=== PATIENT | female | born 1950 | race Caucasian/White ===

== ENCOUNTER 2017-08-20 09:52 | Outpatient (RCR) | payer MEDICARE, MEDICAID ==
[~2017-08-20 09:52] MED LIST: CEPH500C PO
== END 2017-11-18 | disposition home or self-care (01) ==
LOC: ONC 09:52
PROVIDERS: ATTEND Internal Medicine Hematology & Oncology
DX: Z08 Encounter for follow-up examination after completed treatment for malignant neoplasm (principal); Z85.3 Personal history of malignant neoplasm of breast; Z79.899 Other long term (current) drug therapy
CPT/HCPCS: 99214

== ENCOUNTER 2018-09-16 10:38 | Outpatient (RCR) | payer MEDICARE, MEDICAID | END 2018-12-15 | disposition home or self-care (01) | LOC: ONC 10:38 | PROVIDERS: ATTEND Internal Medicine Hematology & Oncology | DX: Z08 Encounter for follow-up examination after completed treatment for malignant neoplasm (principal); Z85.3 Personal history of malignant neoplasm of breast; K58.9 Irritable bowel syndrome, unspecified; E66.01 Morbid (severe) obesity due to excess calories; Z68.41 Body mass index [BMI] 40.0-44.9, adult; Z79.899 Other long term (current) drug therapy | CPT/HCPCS: 99213 ==

== ENCOUNTER → 2021-08-13 | Outpatient (CLI) | payer MEDICARE, MEDICAID ==
--- NOTE | 2021-08-13 13:34 | Diagnostic Imaging Report ---
Procedure: CT sinuses without contrast Technique: Multiple contiguous axial images were obtained through the sinuses without the use of intravenous contrast. Coronal and sagittal reformations were then performed. Auto Exposure Controls were utilized during the CT exam to meet ALARA standards for radiation dose reduction. Date: August 13, 2021. Indication: 71-year-old female, sinus congestion. Tooth pain extending to the region of the temporomandibular joints and down the neck. Comparison: None. Findings: The bilateral frontal sinuses, ethmoidal air cells, and sphenoid sinuses are well aerated. There is a polypoid lesion in the right maxillary sinus most likely reflecting a mucous retention cyst. There is no air-fluid level in the paranasal sinuses. There is no area of bubbly internal lucency. The bilateral sphenoethmoidal recesses are patent. The bilateral ostiomeatal units are patent. The bony nasal septum is near midline. The mastoid air cells and middle ears are well aerated bilaterally. The temporomandibular joints are normally aligned. There is no prominent temporomandibular arthritis. There is no identified periapical lucency or bone destruction in the region of the maxillary teeth. The mandibular teeth are incompletely imaged. The mandible is not entirely included in the [id number] on dedicated paranasal sinus CT evaluation. The orbits are grossly unremarkable in appearance. Impression: 1. No evidence of acute or chronic sinusitis. 2. Unremarkable appearance of the temporomandibular joints. 3. No aggressive bone lesion of the maxilla. 4. The mandible and mandibular teeth are incompletely imaged. Dictated by: Dictated on workstation # [id number]
== END ==
LOC: RAD FS 12:42
PROVIDERS: ATTEND Nurse Practitioner Family
DX: J34.89 Other specified disorders of nose and nasal sinuses (principal)
CPT/HCPCS: 70486

== ENCOUNTER 2021-10-08 11:35 | Emergency (ER) | payer MEDICARE, MEDICAID ==
[~2021-10-08] VITALS: Ht 170.2 cm; Wt 117.9 kg
--- NOTE | 2021-10-08 12:36 | ED Cough/URI ---
General Chief Complaint: COVID19 Suspect/Confirmed Stated Complaint: COUGH Nursing Triage Note: Patient reports she has had a stuffy nose, cough, and fever for 10-11 days. Source: patient Exam Limitations: no limitations History of Present Illness Date Seen by Provider: Oct 08, 2021 Time Seen by Provider: 11:40 Initial Comments Patient is a 71-year-old female presents with 10 days of cough stuffy nose, nasal congestion, clear rhinorrhea, sinus pain/tenderness and intermittent daily fevers up to 102. Patient last had a fever last evening. Patient was evaluated by her PCP proximately 4 days ago and was prescribed albuterol inhaler which she has filled. She was instructed to obtain outpatient Covid tested but did not know how to do so. She denies worsening of her symptoms but states she has not improved. She reports decreased appetite and fluid intake. No urinary frequency urgency or burning. Patient does have very of chronic urinary i ncontinence. No other symptoms or complaints., Timing/Duration: changing over time Severity/Quality: dry cough Prior Episodes/Possible Cause: other Modifying Factors: Improves With Activity Associated Symptoms: cough, facial pain, fever/chills, nasal congestion, nasal drainage, sinus infection, sore throat Allergies and Home Medications Allergies Coded Allergies: metronidazole (Unverified Allergy, Unknown, 02/12/15) Patient Home Medication List Home Medication List Reviewed: Yes Cephalexin Monohydrate (Cephalexin) 500 Mg Capsule, 1 EACH PO TID Prescribed by: YE LANGSTON on 02/12/15 2457 Review of Systems Review of Systems Constitutional: see HPI EENTM: see HPI Respiratory: see HPI Cardiovascular: see HPI Gastrointestinal: see HPI Genitourinary: see HPI Musculoskeletal: see HPI Skin: see HPI Psychiatric/Neurological: See HPI Hematologic/Lymphatic: See HPI Immunological/Allergic: see HPI All Other Systems Reviewed Negative Unless Noted: Yes Past Qxviwdj-[id number]-Qoxaop Hx Patient Social History Tobacco Use?: Yes Past Medical History Joint Replacement Irritable Bowel Arthritis Physical Exam Vital Signs - First Documented 10/08/21 11:36 Temp 37.3 Pulse 78 Resp 18 B/P (MAP) 163/88 (113) Pulse Ox 94 O2 Delivery Room Air Capillary Refill : Less Than 3 Seconds Height: 5'7" Weight: 264lbs. oz. 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 II-XII nml as tested, no motor/sensory deficits, normal mood/affect, oriented x 3 Focused Exam Sepsis Stage: Ruled Out Progress/Results/Core Measures Suspected Sepsis SIRS Temperature: Pulse: 78 Respiratory Rate: 18 Blood Pressure 163 /88 Mean: 113 Results/Orders My Orders Orders - TONEY,VASHTI DO Chest 1 View Ap/Pa Only (10/08/21 12:26) Covid 19 Inhouse Test (10/08/21 12:26) Influenza A And B By Pcr (10/08/21 12:26) Isolation Central Supply Req (10/08/21 12:26) Vital Signs/I&O 10/08/21 11:36 Temp 37.3 Pulse 78 Resp 18 B/P (MAP) 163/88 (113) Pulse Ox 94 O2 Delivery Room Air Capillary Refill : Less Than 3 Seconds Blood Pressure Mean: 113 Departure Communication (Admissions) Chest x-ray: Covid-like symptoms in a nonvaccinated immunocompromised individual. Covid/influenza signed out testing obtained. Will treat empirically with home monitoring of oxygen level and close PCP follow-up. Return precautions reviewed. Patient verbalizes understanding and agreement discharge instructions prior to the [place]. Impression Primary Impression: Viral syndrome Disposition: 01 HOME, SELF-CARE Condition: Stable Departure-Patient Inst. Decision time for Depature: 12:37 Referrals: SHAMAR FERNANDEZ MD (PCP/Family) Primary Care Physician Patient Instructions: Viral Upper Respiratory Infection, Adult (DC) Add. Discharge Instructions: You evaluated in the emergency department for cough, sinus congestion, fever with viral-like symptoms. Covid and influenza's test were obtained and are pending. Check status was performed does not show pneumonia. Please take newly prescribed medications as directed. You will be contacted regarding your Covid results in the next several hours. Continue self quarantine and follow-up with your PCP early next week. Return to the ED if new or worsening symptoms peer All discharge instructions reviewed with patient and/or family. Voiced understanding. Scripts Benzonatate (TESSALON PERLES) 100 Mg Capsule 100 MG PO TID, #20 CAP Prov: VASHTI TONEY DO 10/08/21 Prednisone (Prednisone) 20 Mg Tab 40 MG PO DAILY, #6 TAB 0 Refills Prov: VASHTI TONEY DO 10/08/21 Doxycycline Hyclate (Doxycycline Hyclate) 100 Mg Tablet 100 MG PO BID, #20 TAB 0 Refills Prov: VASHTI TONEY DO 10/08/21 VASHTI TONEY DO Oct 08, 2021 12:36
[2021-10-08] MEDS ORDERED: DOXY100T2 PO (12:40)
[2021-10-08] MEDS ORDERED: BENZ100C18 PO (12:40)
[2021-10-08] MEDS ORDERED: PRD20T PO (12:40)
--- NOTE | 2021-10-08 12:53 | Diagnostic Imaging Report ---
Clinical indication: Patient with shortness of air and congestion. Exam: Portable chest x-ray upright view. Comparisons: None. Findings: There are subtle groundglass opacifications and subtle patchy airspace opacities involving both lung bases which may represent atelectasis versus infiltrates. There is no pleural effusion or pneumothorax. Pulmonary vasculature and cardiac silhouettes within normal limits. There are hypertrophic spurs involving the thoracic spine. Impression: There are subtle bibasilar atelectasis versus infiltrates. Chest x-ray, PA and lateral views with good inspiratory effort may help better evaluate, if necessary. Dictated by: Dictated on workstation # [id number]
[2021-10-08 12:58] VITALS: BP 155/72
== END 2021-10-08 13:02 | disposition home or self-care (01) ==
LOC: EDUNIT# 11:35 → ER FS 11:36
DX: U07.1 COVID-19 (principal)
CPT/HCPCS: 71045; 87636; 87804

== ENCOUNTER 2022-11-18 11:58 | Emergency (ER) | payer MEDICARE, MEDICAID | END 2022-11-18 12:16 | disposition left against medical advice (07) | LOC: EDUNIT# 11:58 → ER FS 12:00 | DX: M25.561 Pain in right knee (principal); Z53.21 Procedure and treatment not carried out due to patient leaving prior to being seen by health care provider ==

== ENCOUNTER → 2022-11-18 | Outpatient (CLI) | payer MEDICARE, MEDICAID ==
[~2022-11-18] MED LIST changes: +BENZ100C18 PO; +DOXY100T2 PO; +PRD20T PO
--- NOTE | 2022-11-18 18:22 | Diagnostic Imaging Report ---
INDICATION: Right knee pain. AP, oblique, and lateral views of the right knee are obtained. FINDINGS: No fracture or acute bony abnormality is seen. Joint spaces are unremarkable. IMPRESSION: Negative right knee. Dictated by: Dictated on workstation # [id number]
--- NOTE | 2022-11-18 18:57 | Diagnostic Imaging Report ---
INDICATION: Left hip pain. FINDINGS: Two-view left hip showed no fracture, dislocation, articular collapse or acute-appearing abnormalities. IMPRESSION: No acute-appearing abnormality. Dictated by: Dictated on workstation # [id number]
== END ==
LOC: RAD FS 14:14
PROVIDERS: ATTEND Allergy & Immunology
DX: M25.561 Pain in right knee (principal); M25.552 Pain in left hip
CPT/HCPCS: 73502; 73562

== ENCOUNTER → 2023-01-02 | Outpatient (CLI) | payer MEDICARE, MEDICAID ==
[~2023-01-02] VITALS: Ht 170.2 cm; Wt 113.6 kg
[~2023-01-02] MED LIST changes: +BUPIVACAINE 0.25% 30 ML (SENSORCAINE) VIAL INJ ONE; +LIDOCAINE 1% INJ 30 ML (XYLOCAINE) VIAL INJ ONE; +LIDOCAINE 1% INJ 30 ML (XYLOCAINE) VIAL ONE; +methylPREDNISolone 40 MG/ML (DEPO MEDROL) VIAL IM ONE
--- NOTE | 2023-01-02 12:10 | Diagnostic Imaging Report ---
INDICATION: Left hip pain. Patient presents for left hip injection of a steroid solution. Patient is brought to the procedure room placed on table in the supine position. Left hip was prepped and draped in usual sterile fashion. Small amount of 1% lidocaine was utilized for local anesthesia. 20-gauge needle was advanced and place with its tip at the femoral head neck junction laterally. 80 mg of Depo-Medrol and 3 mL of 0.25% bupivacaine was injected in the intracapsular location of the left hip. 16 seconds of fluoroscopic time was utilized. Needle was withdrawn and hemostasis was obtained. Patient tolerated procedure well and left the Department in stable condition. IMPRESSION: Successful intra-articular injection of bupivacaine and steroid solution into the left hip, utilizing fluoroscopic guidance. Dictated by: Dictated on workstation # [id number]
== END ==
LOC: RAD 10:48
PROVIDERS: ATTEND Orthopaedic Surgery
DX: M16.12 Unilateral primary osteoarthritis, left hip (principal)
CPT/HCPCS: 20610; 77002

== ENCOUNTER → 2023-09-25 | Outpatient (CLI) | payer MEDICARE, MEDICAID ==
[~2023-09-25] MED LIST changes: -BUPIVACAINE 0.25% 30 ML (SENSORCAINE) VIAL INJ ONE; -LIDOCAINE 1% INJ 30 ML (XYLOCAINE) VIAL INJ ONE; -LIDOCAINE 1% INJ 30 ML (XYLOCAINE) VIAL ONE; -methylPREDNISolone 40 MG/ML (DEPO MEDROL) VIAL IM ONE
--- NOTE | 2023-09-25 14:07 | Diagnostic Imaging Report ---
CLINICAL INDICATION: Patient is having headaches. Outside CT shows an abnormal area. EXAM: MRI of the brain performed without IV contrast. Sequences include axial DWI, ADC map, axial T1, axial T2, axial FLAIR, axial gradient echo, and sagittal T1. COMPARISON: None. FINDINGS: There is motion artifact limiting evaluation of the axial FLAIR sequence. There is no evidence of acute cerebral infarct, intracranial hemorrhage, or gross mass effect. The brain parenchymal volume appears appropriate for patient's age. There are multiple focal and patchy areas of high T2 signal white matter changes involving both cerebral hemispheres. There is a prominent area of increased T2 signal involving the posterior right frontal lobe region which measures 1.5 cm in greatest axial dimension. This may be related to chronic ischemic changes. There is normal sanders-white matter distinction. There is no significant midline shift or herniation. The visualized [place] vascular structures are unremarkable. There is no evidence of hydrocephalus. The basal cisterns are unremarkable. The skull, extracranial soft tissue, and orbits are unremarkable. There is minimal mucosal thickening involving both maxillary sinuses. Temporal bones show no significant abnormality. IMPRESSION: 1: There is no evidence of an acute intracranial process. This exam should be compared to the outside head CT if previously seen findings were not addressed. 2: There are focal and patchy areas of high T2 signal white matter changes involving both cerebral hemispheres. There is also a prominent area of increased T2 signal involving the posterior right frontal lobe region. These findings are suspected to be related to chronic small vessel ischemic disease. 3: There is mild paranasal sinus disease. Dictated by: Dictated on workstation # [id number]
== END ==
LOC: RAD 12:30
PROVIDERS: ATTEND Family Medicine
DX: R93.89 Abnormal findings on diagnostic imaging of other specified body structures (principal); J32.0 Chronic maxillary sinusitis
CPT/HCPCS: 70551